=== PATIENT | female | born 1945 | race Caucasian/White ===

== ENCOUNTER 2017-09-02 13:15 | Inpatient (IN) | payer MEDICARE, BC ==
[~2017-09-02] VITALS: Ht 165.1 cm; Wt 94.3 kg
--- NOTE | ~2017-09-02 | OP ---
PATIENT NAME: SYLVIE JULIO MEDICAL RECORD: [id number] LOCATION:[id number] ADMISSION DATE:09/02/17 SURGEON: VANESSA URBINA MD DATE OF OPERATION: 09/04/2017 PREOPERATIVE DIAGNOSES: 1. Acute cholecystitis. 2. Gallstones. POSTOPERATIVE DIAGNOSES: 1. Acute cholecystitis. 2. Gallstones. PROCEDURE: Laparoscopic cholecystectomy. SURGEON: Vanessa Urbina MD REPORT OF PROCEDURE: The patient's abdomen was prepped and draped in sterile fashion. A cutdown was made on the inferior aspect of the umbilicus. Electrocautery was used to dissect through the subcutaneous tissues down to the fascia. 0 Vicryls were placed on the fascia bilaterally and the fascia was incised with 15-blade. I then bluntly entered the peritoneal cavity and placed a 12-mm Radha port. Under direct visualization, a 5-mm trocar was placed in the epigastrium and 2 more 5-mm trocars were placed in the right subcostal region. The gallbladder was elevated and there was noted to be a lot of inflammatory changes present. The gallbladder was very thickened and swollen and appeared to be mildly gangrenous. There was no sign of any perforation or spillage. The gallbladder fundus was perforated and the internal contents were removed. This made to more easily grasp the fundus of the gallbladder for manipulation. We then started our dissection down and found the cystic artery and cystic duct. These structures were clipped proximally and distally and ligated. The patient had a very large firm stone at the base of the gallbladder. We eventually were able to dissect the gallbladder off of the liver bed and then placed this into an Endo Catch bag. The liver bed was treated with electrocautery to stop any bleeding that was present. Upon final inspection, the clips were all intact and there was no sign of any active bleeding at the conclusion of the case. The patient was also noted to have a large cyst on the right lobe of the liver. A small opening was made in this and the cyst was drained revealing just clear fluid. The ports and insufflation were then removed and the gallbladder was taken out through the umbilicus. The umbilical fascia was closed with interrupted 0 Vicryls times 4. The wounds were then irrigated out with normal saline and infused with 10 mL of 0.25% Marcaine with epinephrine. The skin incisions were all closed with subcutaneous 5-0 Monocryl and dressed appropriately. COMPLICATIONS: None. CONDITION: Stable. ANESTHESIA: General endotracheal and local. BLOOD LOSS: 150 mL. 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
[2017-09-02 13:42] LABS: BASOPHILS 0.2 % (0-2); EOSINOPHILS 0.8 % (0-7); HEMATOCRIT 42.5 % (36.0-48.0); HEMOGLOBIN 14.1 g/dL (12-16); IMMATURE GRANULOCYTES 0.2 % (0-5); LYMPHOCYTES 19.6 % (15-50); MCH 29.2 pg (26.0-34.0); MCHC 33.2 g/dL (31.0-37.0); MEAN PLATELET VOLUME 10.3 fL (7.4-10.4); MONOCYTES 8.8 % (2-11); NEUTROPHILS 70.4 % (40-80); PLATELET COUNT 328 10x3/uL (130-400); RBC 4.83 10x6/uL (4.00-5.40); RDW 14.1 % (11.5-14.5); WBC 10.2 10x3/uL (4.8-10.8)
[2017-09-02 14:07] LABS: ALBUMIN 3.3 g/dL (3.4-5.0); ANION GAP 15.7 mmol/L (8-16); BILIRUBIN - TOTAL 0.63 mg/dL (0.2-1.3); CALCIUM 9.2 mg/dL (8.5-10.1); CARBON DIOXIDE 29.4 mmol/L (21.0-32.0); CREATININE - SERUM 0.9 mg/dL (0.6-1.3); POTASSIUM - SERUM 3.1 mmol/L (3.5-5.1); PROTEIN - SERUM 8.6 g/dL (6.4-8.2)
[2017-09-02 14:46] LABS: APPEARANCE CLEAR (CLEAR); BACTERIA FEW /hpf (NONE SEEN); BILIRUBIN NEGATIVE (NEGATIVE); COLOR DK YELLOW (YELLOW); EPITHELIAL CELLS 0-5 /hpf (0-5); GLUCOSE NEGATIVE (NEGATIVE); KETONE NEGATIVE (NEGATIVE); MUCUS >1+ /lpf (NONE SEEN); NITRITE NEGATIVE (NEGATIVE); PROTEIN NEGATIVE (NEGATIVE); SPECIFIC GRAVITY 1.015 (1.005-1.020); UROBILINOGEN NORMAL (NORMAL); WHITE CELLS - URINE OCC /hpf (0-5)
[2017-09-02 15:06] LABS: AMYLASE - SERUM 51 U/L (25-115); LIPASE 139 U/L (73-393)
[2017-09-02 20:01] VITALS: BP 122/66
[2017-09-03 00:15] VITALS: BMI 34.6
[2017-09-03 05:03] VITALS: BP 122/62
[2017-09-03 06:26] LABS: BASOPHILS 0.1 % (0-2); EOSINOPHILS 1.2 % (0-7); HEMATOCRIT 36.2 % (36.0-48.0); HEMOGLOBIN 11.5 g/dL (12-16); IMMATURE GRANULOCYTES 0.5 % (0-5); LYMPHOCYTES 26.4 % (15-50); MCH 28.2 pg (26.0-34.0); MCHC 31.8 g/dL (31.0-37.0); MCV 88.7 fL (80.0-100.0); MEAN PLATELET VOLUME 10.3 fL (7.4-10.4); MONOCYTES 9.4 % (2-11); NEUTROPHILS 62.4 % (40-80); RBC 4.08 10x6/uL (4.00-5.40); RDW 14.1 % (11.5-14.5)
[2017-09-03 06:32] LABS: PLATELET COUNT 258 10x3/uL (130-400); WBC 7.4 10x3/uL (4.8-10.8)
[2017-09-03 06:50] LABS: ALKALINE PHOSPHATASE 138 U/L (46-116); ALT (SGPT) 29 U/L (10-68); BILIRUBIN - TOTAL 0.51 mg/dL (0.2-1.3); CALCIUM 7.7 mg/dL (8.5-10.1); CHLORIDE - SERUM 106 mmol/L (98-107); CREATININE - SERUM 0.8 mg/dL (0.6-1.3); GLUCOSE 108 mg/dL (74-106); LIPASE 97 U/L (73-393); SODIUM 143 mmol/L (136-145); eGFR NON AFRICAN AMERICAN 75 mL/min (90-120)
[2017-09-03 06:56] LABS: ALBUMIN 2.4 g/dL (3.4-5.0); AMYLASE - SERUM 36 U/L (25-115); CALC OSMOLALITY 286 mosm/kg (275-300); PROTEIN - SERUM 6.4 g/dL (6.4-8.2); UREA NITROGEN 15 mg/dL (7-18)
[2017-09-03 08:02] VITALS: BP 157/69
[2017-09-03 12:00] VITALS: BP 142/65
[2017-09-03 14:21] VITALS: Ht 165.1 cm; Wt 94.3 kg
[2017-09-03 16:35] VITALS: BP 147/72
[2017-09-03 20:30] VITALS: BP 151/68
[2017-09-04 00:52] VITALS: BP 155/73
[2017-09-04 03:58] VITALS: BP 154/74
[2017-09-04 04:35] LABS: BASOPHILS 0.1 % (0-2); EOSINOPHILS 2.4 % (0-7); HEMATOCRIT 34.1 % (36.0-48.0); IMMATURE GRANULOCYTES 0.4 % (0-5); LYMPHOCYTES 30.7 % (15-50); MCH 28.4 pg (26.0-34.0); MCHC 32.3 g/dL (31.0-37.0); MCV 87.9 fL (80.0-100.0); MONOCYTES 7.9 % (2-11); NEUTROPHILS 58.5 % (40-80); PLATELET COUNT 252 10x3/uL (130-400); RBC 3.88 10x6/uL (4.00-5.40); RDW 13.9 % (11.5-14.5); WBC 7.5 10x3/uL (4.8-10.8)
[2017-09-04 04:52] LABS: ALBUMIN 2.2 g/dL (3.4-5.0); ALKALINE PHOSPHATASE 130 U/L (46-116); ALT (SGPT) 22 U/L (10-68); BILIRUBIN - TOTAL 0.35 mg/dL (0.2-1.3); CALC OSMOLALITY 287 mosm/kg (275-300); CALCIUM 7.8 mg/dL (8.5-10.1); CARBON DIOXIDE 27.4 mmol/L (21.0-32.0); CHLORIDE - SERUM 109 mmol/L (98-107); CREATININE - SERUM 0.6 mg/dL (0.6-1.3); GLUCOSE 92 mg/dL (74-106); POTASSIUM - SERUM 3.2 mmol/L (3.5-5.1); SODIUM 145 mmol/L (136-145); UREA NITROGEN 10 mg/dL (7-18); eGFR NON AFRICAN AMERICAN > 90 mL/min (90-120)
[2017-09-04 08:29] VITALS: BP 158/62
[2017-09-04 12:51] VITALS: BP 134/65
[2017-09-04 17:11] VITALS: BP 116/93
[2017-09-04 20:38] VITALS: BP 158/71
[2017-09-05 00:40] VITALS: BP 164/74
[2017-09-05 04:38] VITALS: BP 115/47
[2017-09-05 04:51] LABS: BASOPHILS 0 % (0-2); EOSINOPHILS 0 % (0-7); HEMOGLOBIN 11.6 g/dL (12-16); IMMATURE GRANULOCYTES 0.4 % (0-5); LYMPHOCYTES 9.7 % (15-50); MCH 28.4 pg (26.0-34.0); MCHC 32.2 g/dL (31.0-37.0); MEAN PLATELET VOLUME 10.1 fL (7.4-10.4); MONOCYTES 5.2 % (2-11); NEUTROPHILS 84.7 % (40-80); RBC 4.09 10x6/uL (4.00-5.40); RDW 13.9 % (11.5-14.5)
[2017-09-05 04:59] LABS: PLATELET COUNT 303 10x3/uL (130-400); WBC 10.9 10x3/uL (4.8-10.8)
[2017-09-05 05:24] LABS: ALBUMIN 2.4 g/dL (3.4-5.0); ALKALINE PHOSPHATASE 132 U/L (46-116); CALCIUM 8.4 mg/dL (8.5-10.1); CARBON DIOXIDE 25.7 mmol/L (21.0-32.0); CHLORIDE - SERUM 104 mmol/L (98-107); POTASSIUM - SERUM 3.4 mmol/L (3.5-5.1); PROTEIN - SERUM 6.4 g/dL (6.4-8.2); SODIUM 142 mmol/L (136-145); UREA NITROGEN 8 mg/dL (7-18)
[2017-09-05 05:28] LABS: ALT (SGPT) 46 U/L (10-68); CALC OSMOLALITY 284 mosm/kg (275-300); CREATININE - SERUM 0.8 mg/dL (0.6-1.3); GLUCOSE 172 mg/dL (74-106); eGFR NON AFRICAN AMERICAN 75 mL/min (90-120)
[2017-09-05 08:09] VITALS: BP 106/61
[2017-09-05] MEDS ORDERED: HYDROCODONE-APA1 TAB PO (08:09)
== END 2017-09-05 10:53 | disposition home or self-care (01) | DRG 419 ==
LOC: D.ER 13:15 → D.MS 18:46
PROVIDERS: Family Medicine; Surgery
PROC: 0FT44ZZ Resection of Gallbladder, Percutaneous Endoscopic Approach (ICD-10-PCS; principal; 2017-09-04 12:20)
DX: K80.00 Calculus of gallbladder with acute cholecystitis without obstruction (principal); E86.0 Dehydration